=== PATIENT | female | born 1970 | race Caucasian/White ===

== ENCOUNTER → 2016-11-18 10:36 | Outpatient (CLI) | payer OTHER | END | disposition home or self-care (01) | LOC: D.RT 10:36 | DX: Z02.71 Encounter for disability determination (principal) ==

== ENCOUNTER 2019-04-14 09:43 | Day surgery (SDC) | payer MEDICARE ==
[2019-04-13 13:56] LABS: HEMATOCRIT 41.7 % (36.0-48.0); HEMOGLOBIN 13.8 g/dL (12-16); MCH 26.6 pg (26.0-34.0); MCHC 33.1 g/dL (31.0-37.0); MCV 80.3 fL (80.0-100.0); MEAN PLATELET VOLUME 9.2 fL (7.4-10.4); RBC 5.19 10x6/uL (4.00-5.40); WBC 10.7 10x3/uL (4.8-10.8)
[~2019-04-14] VITALS: Ht 162.6 cm; Wt 89.8 kg
[~2019-04-14 09:43] MED LIST: ALBUTEROL SULF8.5 GM INH; AMBIEN10 MG PO; ASPIRIN325 MG PO; ATIVAN1 MG PO; CYMBALTA60 MG PO; HYDROCODON-ACE1 EA10 PO; INCRUSE ELLI62.5 MCG INH; LYRICA150 MG PO; OMEPRAZOLE CAP 20M; TOPROL XL25 MG PO
[2019-04-14 11:34] VITALS: BP 129/62; Ht 162.6 cm; Wt 89.8 kg
--- NOTE | 2019-04-18 14:32 | OP ---
PATIENT NAME: SUSAN EUBANKS MEDICAL RECORD: [id number] :68 LOCATION:D[facility] ADMISSION DATE: SURGEON: ALFREDO DOMINGUEZ DATE OF OPERATION: 04/14/2019 SURGEON: Alfredo Dominguez DPM PREOPERATIVE DIAGNOSES: 1. Retrocalcaneal exostosis, right foot. 2. Plantar fasciitis, right foot. POSTOPERATIVE DIAGNOSES: 1. Retrocalcaneal exostosis, right foot. 2. Plantar fasciitis, right foot. PROCEDURE: 1. Excision of retrocalcaneal exostosis, right foot. 2. Plantar fasciotomy, right foot. ANESTHESIA: Local with monitored anesthesia care. HEMOSTASIS: Pneumatic calf ankle tourniquet inflated to 250 mmHg. ESTIMATED BLOOD LOSS: Minimal. MATERIALS: One [employer] 3.5 mm [place] suture anchor, 3-0 Vicryl, 4-0 nylon. INJECTABLES: 20 mL of 0.5% bupivacaine plain. The patient has longstanding history of pain associated with the right foot. She has pain associated with both retrocalcaneal exostosis and also plantar fasciitis. She has not improved with conservative modalities. She is here today for surgical correction. We reviewed the proposed procedures. Risks and benefits were discussed. Complications were reviewed. All questions were answered. She was appropriately consented for the above-mentioned procedures. Of note, she has two separate pathologies and a painful retrocalcaneal area as well as a traditional plantar fasciitis. DESCRIPTION OF PROCEDURE: The patient was brought in the operating room and placed on the operating table in supine position. A timeout was called with Dr. Dominguez, who identified the patient, the surgical site, and the surgery to be performed. Once appropriate anesthesia was obtained, the foot was prepped and draped in the usual aseptic manner. Pneumatic calf tourniquet was inflated to 250 mmHg. Attention was directed to the posterior aspect of the right foot where a 5-cm linear incision was made. This incision was carried deep to soft tissue with care being taken to retract all vital neurovascular structures. All bleeders were cauterized along the way. The Achilles tendon was then identified and sharply transected from superior to inferior. The Achilles tendon was then reflected and the prominent retrocalcaneal exostosis was identified. Next, utilizing combination of a sagittal saw, rasp, and rongeur, the posterior aspect OPERATIVE REPORT [id number] SUSAN EUBANKS of the right calcaneus was contoured. All hypertrophied bone was removed. The diseased Achilles tendon was also debrided at this time. The surgical site was then irrigated with copious amounts of normal sterile saline. Next, utilizing manufacture's recommended technique, one 3.5 mm anchor was inserted into the calcaneus and the Achilles tendon was then sutured in place. The surgical site was then irrigated with copious amounts of normal sterile saline via bulb syringe. The subq tissues were then reapproximated and coapted with 3-0 Vicryl. The skin was then reapproximated and coapted using 4-0 nylon. PLANTAR FASCIOTOMY, LEFT FOOT: Attention was directed to plantar aspect of the left foot where a 2-cm linear incision was made on the plantar medial aspect of the heel. This incision was carried deep to soft tissue with care being taken to retract all vital neurovascular structures. All bleeders were cauterized along the way. The subq fat was then dissected away from the plantar fascia, thus exposing the plantar fascia. Utilizing a fresh 15 blade, the medial one-third of the plantar fascia was sharply transected. The surgical site was then investigated for any remaining tight bands of plantar fascia and none were noted. The surgical site was then irrigated with copious amounts of normal sterile saline via bulb syringe. The subq was then reapproximated and coapted using 3-0 Vicryl. Skin was then reapproximated and coapted with 4-0 nylon. A dressing consisting of Xeroform, 4 x 4's, Kerlix, and Lj bandage was applied to the left foot. The pneumatic ankle tourniquet was deflated and cap refill time is immediate to all digits of the left foot. The patient was discharged home with instructions to ice and elevate the left foot. She was dispensed a boot to help further offload the foot. She also has a wheelchair to be completely nonweightbearing for the next 3-4 weeks. She was provided with a prescription for Demerol 50 mg and there were no complications of this procedure. We will follow up with her in 1 week. TRANSINT:[id number] Voice Confirmation ID: [id number] DOCUMENT ID: [id number] ALFREDO DOMINGUEZ at 1432 CC: [id number] DICTATION DATE: 04/14/19 1524 TUBE MOUNTER: 04/15/19 0100 [facility] [place] 04/14/19 [facility] [address] [id number]
== END 2019-04-14 15:18 | disposition home or self-care (01) ==
LOC: D.OPS 09:43 → D.PAN 12:00 → D.OPS 12:00
PROVIDERS: Anesthesiology; ATTEND Podiatrist
DX: M89.9 Disorder of bone, unspecified (principal); M72.2 Plantar fascial fibromatosis